=== PATIENT | female | born 1985 | race Caucasian/White ===

== ENCOUNTER 2020-08-28 12:53 | Emergency (ER) | payer BC, OTHER ==
[~2020-08-28 12:53] MED LIST: ANTI-ITCH28 GM TP; ZOFRAN4 MG PO
[2020-08-28 14:18] LABS: HEMOGLOBIN 14.9 gm/dl (12.3-15.3); RED BLOOD COUNT 4.59 M/UL (4.00-5.10); WHITE BLOOD COUNT 10.8 K/UL (4.5-11.0)
[2020-08-28 15:35] LABS: BUN/CREATININE RATIO 15 (0-10)
[2020-08-28] MEDS ORDERED: ZOFRAN 4 MG TAB4 MG PO (17:46)
== END 2020-08-28 17:49 | disposition home or self-care (01) ==
LOC: ER1 12:53
PROVIDERS: Physician Assistant Medical
DX: N39.0 Urinary tract infection, site not specified (principal); R42 Dizziness and giddiness; F17.210 Nicotine dependence, cigarettes, uncomplicated; Z20.822 Contact with and (suspected) exposure to COVID-19; Z90.710 Acquired absence of both cervix and uterus; Z91.040 Latex allergy status; Z88.8 Allergy status to other drugs, medicaments and biological substances
CPT/HCPCS: 0240U; 80053; 81001; 82550; 82553; 83874; 84484; 85025; 87077; 87086; 87186; 93005; 96365; 99284; J0696

== ENCOUNTER 2021-01-10 12:48 | Emergency (ER) | payer OTHER, BC ==
[~2021-01-10 12:48] MED LIST changes: +ZOFRAN 4 MG TAB4 MG PO
[2021-01-10 13:54] LABS: HEMOGLOBIN 14.5 gm/dl (12.3-15.3); RED BLOOD COUNT 4.53 M/UL (4.00-5.10)
[2021-01-10 14:19] LABS: BUN/CREATININE RATIO 10 (0-10)
== END 2021-01-10 16:07 | disposition home or self-care (01) ==
LOC: ER1 12:48
PROVIDERS: Student in an Organized Health Care Education/Training Program
DX: S60.512A Abrasion of left hand, initial encounter (principal); M54.2 Cervicalgia; M54.5 Low back pain; Z79.899 Other long term (current) drug therapy; Z88.6 Allergy status to analgesic agent; V49.40XA Driver injured in collision with unspecified motor vehicles in traffic accident, initial encounter; Y92.410 Unspecified street and highway as the place of occurrence of the external cause
CPT/HCPCS: 71045; 72125; 72131; 80053; 84702; 85025; 90471; 96374; 96375; 99284